=== PATIENT | male | born 1945 | race Hispanic/Latino ===

== ENCOUNTER → 2025-01-09 | Outpatient (CLI) | payer OTHER ==
--- NOTE | 2025-01-09 10:50 | HMCIMG ---
DOUBLE CONTRAST UPPER GI SERIES: Finding: The study was performed using provocative maneuvers After swallowing effervescent crystal and thick barium, there is no definite intrinsic or extrinsic lesion seen in the esophagus. There is mild grade 1 esophageal reflux there is no hiatal hernia seen. The stomach is normal in size, shape, and configuration. The rugal folds appear to be normal. The duodenal bulb, duodenal sweep, and upper jejunum appear to be normal. 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 Patient is status post median sternotomy with cardiac revascularization procedure. Fluoroscopy time: 0.9 minutes IMPRESSION: Mild grade 1 esophageal reflux Duodenal diverticulum Otherwise NORMAL DOUBLE CONTRAST UPPER GI SERIES.
== END | disposition home or self-care (01) ==
LOC: RAH 08:56
PROVIDERS: ATTEND Internal Medicine Gastroenterology
DX: K21.9 Gastro-esophageal reflux disease without esophagitis (principal); K57.10 Diverticulosis of small intestine without perforation or abscess without bleeding; R14.0 Abdominal distension (gaseous); R12 Heartburn; R10.9 Unspecified abdominal pain; Z98.890 Other specified postprocedural states
CPT/HCPCS: 74240